=== PATIENT | male | born 1950 | race Caucasian/White ===

== ENCOUNTER 2017-04-07 08:21 | Emergency (ER) | payer MEDICARE ==
[~2017-04-07] VITALS: Ht 175.3 cm; Wt 153.6 kg
--- NOTE | ~2017-04-07 | CT2 ---
[facility] A Service of [facility] & [facility] RADIOLOGY TEXT RESULTS PATIENT: HAO NEFF LOCATION: [facility] : 52 UNIT #: [id number] AGE: [address]: Michel Rosario MD SEX: M ORDER DR: [id number] [facility] [address] [place], [place] [address] [id number] MR#: [id number] Acc #: [id number] NAME: HAO NEFF. : 1950 SEX: M STUDY DATE/TIME: 04/07/2017 11:04 UNIT: [facility] ROOM: STUDY DESCRIPTION: CT Abd and Pelv W Cont Attending Physician: Michel Rosario M.D. Ordering Physician: Michel Rosario M.D. Primary Care Physician: Joel AguilarRNiko MEDICAL IMAGING REPORT This report is preliminary unless electronic signature is present EXAM CT abdomen and pelvis with contrast INDICATION Right lower quadrant pain for 3 days. Difficulty urinating. COMPARISON 07/11/2015. TECHNIQUE Patient was given 100 mL of IV contrast and axial 5 mm images were obtained through the abdomen and pelvis. Oral contrast was also administered. Sagittal and coronal reconstructions were generated. This CT exam was performed with one or more of the following radiation dose reduction techniques: Automatic exposure control, adjustment of mA and/or kV according to patient size, and iterative reconstruction. FINDINGS There is a small left and right effusions with minimal basilar atelectasis. The gallbladder been removed. The liver, spleen, pancreas, adrenal glands and kidneys are normal in appearance. There is no hydronephrosis. The aorta is normal in size. The bowel appears normal. There is no adenopathy. The bladder is collapsed around a Lundberg catheter. There are degenerative changes throughout the lumbar spine. The is particularly true at L5-S1. IMPRESSION 1. There are no acute findings identified. There is a Lundberg catheter in the bladder. 2. Small left greater than right effusions with mild basilar atelectasis. 3. It is difficult to see the appendix but I do not see any evidence of appendicitis or bowel inflammation. STS. [facility] A Service of [facility] & [facility] RADIOLOGY TEXT RESULTS PATIENT: HAO NEFF LOCATION: [facility] : 52 UNIT #: [id number] AGE: [address]: Michel Rosario MD SEX: M ORDER DR: Dictated by... Pantera Willis M.D. THIS IS AN ELECTRONICALLY VERIFIED REPORT Pantera Willis M.D. at 04/09/2017 6:16 AM SJ/shilpi TD: 04/08/2017 12:55 JOB #: [id number] MEDICAL IMAGING REPORT Page 1 of 1 COPY
[~2017-04-07 08:21] MED LIST: ACETAMINOPHEN PO; ACULAR LS5 ML; ADVIL200 M3 PO; AL-MAG HYDROX-S30 M1 PO; ALBUTEROL17 GM INH; ALLOPURINOL300 MG PO; ALTOPREV40 MG PO; ANUCORT-HC25 MG/SUPP PR; ANUSOL-HC CREAM30 G1 EXT; ASPIR-TRIN325 MG PO; ASPIRIN ENTERI325 M1 PO; ASPIRIN PO; ASPIRIN325 M1 PO; ATARAX; ATARAX PO; AUGMENTIN875 MG PO; AZITHROMYCIN1 GM PO; BACTRIM DS TABL1 TA1 PO; BACTRIM DS TABL1 TAB PO; BAYER ASPIRIN325 M1 PO; BENZONATATE PO; BUMETANIDE2 M1 PO; BUSPAR PO; BUSPIRONE HCL7.5 MG PO; CIPRO PO; COLACE PO; COLCRYS0.6 M2 PO; COMBIVENT INH14.7 GM INH; DAPTOMYCIN IV; DIAZEPAM PO; DICLOFENAC PO; FERRO-TIME325 MG PO; FISH OIL 10001000 MG PO; FLEXERIL10 MG PO; FUROSEMIDE40 MG PO; GLIPIZIDE10 MG PO; GLUCOPHAGE XR500 MG PO; GLUCOTROL; GLUCOTROL PO; GLUCOTROL XL PO; GLUCOTROL XL10 MG PO; GLUCOTROL10 MG PO; HUMULIN 70/30 V10 ML; HUMULIN N VIAL SUBQ; HUMULIN N100 U/ML SQ; HUMULIN N100 U/ML SUBQ; HUMULIN R100 U/ML SUBQ; HYDROCODON-ACE1 EA11 PO; HYDROCODON-ACE1 EAC1; HYDROCODON-ACE1 EAC1 PO; HYDROCODON-ACE1 EAC5 PO; HYDROXYZINE HCL25 M1 PO; HYDROXYZINE PAM25 MG PO; IBUPROFEN200 M1 PO; IMDUR PO; IMDUR-ER30 MG PO; LASIX PO; LEVAQUIN PO; LISINOPRIL PO; LISINOPRIL10 MG PO; LISINOPRIL30 MG PO; LORTAB 2.5/5001 TAB PO; LORTAB 7.5-5001 TAB PO; MACROBID100 M1 PO; MEROPENEM500 M1 IV; METFORMIN; MEVACOR; MEVACOR PO; MEVACOR40 MG PO; NEURONTIN300 MG PO; NITROGLYGERIN0.4 MG SL; NORCO 5/325 TAB1 TAB PO; NORVASC PO; NOVOLIN N100 U/M1 SQ; NOVOLIN N100 U/ML SUBQ; NOVOLIN N100 UNIT/1; NOVOLIN N100 UNIT/1 SQ; NOVOLIN N100 UNIT/1 SUBQ; NOVOLIN NPH SQ; NOVOLIN R100 U/ML SUBQ; NOVOLIN R100 UNITS/ INJ; NOVOLIN R100 UNITS/ SQ; NOVOLIN R100 UNITS/ SUBQ; OMNIPRED10 ML; PERCOCET PO; PERCOCET5/325 PO; PHENERGAN25 M1 PO; PLAVIX PO; PRILOSEC PO; PRINIVIL20 M1 PO; PRINIVIL5 MG PO; PROCARDIA10 MG PO; PROTONIX PO; SIMVASTATIN40 MG PO; TOBREX5 ML; TOPROL XL PO; TYLENOL325 M1 PO; ULORIC40 MG; ULTRAM PO; VIBRAMYCIN50 MG; VICODIN 5/500 T1 TAB PO; VICODIN ES 7.51 EAC1 PO; ZITHROMAX PO; ZYLOPRIM PO; ZYRTEC10 M2 PO
[2017-04-07 09:17] LABS: URINE SOURCE CLEAN CATCH
[2017-04-07 09:22] LABS: URINE APPEARANCE CLEAR; URINE BILIRUBIN NEG (NEG); URINE BLOOD TRACE (NEG); URINE COLOR YELLOW; URINE GLUCOSE 500 MG/DL (NEG); URINE KETONE NEG (NEG); URINE LEUKOCYTE ESTERASE NEG (NEG); URINE NITRATE NEG (NEG); URINE PROTEIN 1+ (NEG); URINE SPECIFIC GRAVITY 1.012 (1.003-1.035)
[2017-04-07 09:22] LABS: BASOPHIL# 0.1 X10e3 (0-0.3); BASOPHIL% 1.3 % (0-2.5); EOSINOPHIL# 0.2 X10e3 (0-0.7); EOSINOPHIL% 2.9 % (0.0-7.0); HEMATOCRIT 35.1 % (38.0-50.0); HEMOGLOBIN 11.4 gm/dL (13.0-16.0); LYMPHOCYTE# 2.6 X10e3 (1.0-3.5); LYMPHOCYTE% 33.8 % (17.0-45.0); MEAN CELL VOLUME 89.9 FL (83-96); MEAN CORPUSCULAR HEMOGLOBIN 29.3 PG (28-34); MEAN CORPUSCULAR HGB CONC 32.6 g/dL (30-36); MEAN PLATELET VOLUME 7.6 FL (6.5-11.5); MONOCYTE# 0.7 X10e3 (0-1.0); MONOCYTE% 9.3 % (3.0-12.0); NEUTROPHIL# 4.1 X10e3 (1.5-7.1); NEUTROPHIL% 52.7 % (40-75); PLATELET COUNT 166 X10e3 (140-420); RED CELL DISTRIBUTION WIDTH 18.4 % (11.0-15.5); WHITE BLOOD COUNT 7.7 X10e3 (4.0-10.5)
[2017-04-07 09:23] LABS: DIFF IND NO
[2017-04-07 09:25] LABS: URINE BACTERIA AUWI NEG (NEGATIVE); URINE SQUAMOUS EPITHELIAL CELL NONE SEEN /[HPF]; UWBCS1 AUWI 0-2 (0-5)
[2017-04-07 09:38] LABS: CULTURE INDICATED? NO
[2017-04-07 09:54] LABS: ALBUMIN SERUM 2.6 g/dL (3.5-5.0); BILIRUBIN, DIRECT 0.3 mg/dL (0.0-0.2); BILIRUBIN,INDIRECT 0.8 mg/dL (0.0-0.9); BILIRUBIN,TOTAL 1.1 mg/dL (0.2-2.0); BUN/CREATININE RATIO 19.16; CALCIUM SERUM 8.7 mg/dL (8.4-10.2); CREATININE SERUM 1.2 mg/dL (0.6-1.4); GLOM FILT RATE Estimated 62.7 mL/min (>60); POTASSIUM 3.8 mmol/L (3.5-5.1); PROTEIN TOTAL SERUM 6.6 g/dL (6.0-8.3)
== END 2017-04-07 13:17 | disposition home or self-care (01) ==
LOC: CED 08:21
PROVIDERS: Emergency Medicine
DX: R10.31 Right lower quadrant pain (principal); R10.32 Left lower quadrant pain; R33.9 Retention of urine, unspecified; E11.9 Type 2 diabetes mellitus without complications; E78.5 Hyperlipidemia, unspecified; I12.9 Hypertensive chronic kidney disease with stage 1 through stage 4 chronic kidney disease, or unspecified chronic kidney disease; N18.9 Chronic kidney disease, unspecified; Z90.49 Acquired absence of other specified parts of digestive tract; Z88.1 Allergy status to other antibiotic agents; Z88.2 Allergy status to sulfonamides; Z88.8 Allergy status to other drugs, medicaments and biological substances
CPT/HCPCS: 36415; 51702; 74177; 80048; 80076; 81003; 82150; 82947; 83690; 85025; 96374; 96375; 99284; J2270; J2550; Q9967